=== PATIENT | female | born 1950 | race Caucasian/White ===

== ENCOUNTER 2018-03-05 22:06 | Emergency (ER) | payer MEDICARE, BC ==
[~2018-03-05] VITALS: Ht 152.4 cm; Wt 63.5 kg
--- NOTE | 2018-03-05 22:30 | NUR ---
PT BIBSELF C/O RIGHT LEG PAIN. SENT BY [facility]RGENT [facility]ARE FOR ULTRASOUND TO R/O DVT. NAD NOTED, VSS, RESP EVEN AND UNLABORED, PT WAS PUT MONITOR. AT BS.
--- NOTE | 2018-03-05 22:36 | NUR ---
PER RADIOLOGY, PAGED ISA.
--- NOTE | 2018-03-05 23:09 | NUR ---
MELISSA SERRANO BS
--- NOTE | 2018-03-05 23:29 | NUR ---
REPORT GIVEN TO URBANO CUEVAS
[2018-03-06 01:14] VITALS: BP 160/77
== END 2018-03-06 01:14 | disposition home or self-care (01) ==
LOC: ER 22:13
DX: Z13.89 Encounter for screening for other disorder (principal); M79.1 Myalgia; I10 Essential (primary) hypertension; G47.00 Insomnia, unspecified; Z60.2 Problems related to living alone
CPT/HCPCS: 93970-TC; A4606; Z7610